=== PATIENT | female | born 1950 | race African-American/Black ===

== ENCOUNTER 2022-01-23 09:57 | Day surgery (SDC) | payer MEDICARE ==
[~2022-01-23] VITALS: Ht 152.4 cm; Wt 67.9 kg
[~2022-01-23 09:57] MED LIST: CENTRUM SILVER1 CTB PO; PREMARIN 0.60.625 M1 PO; PRINIVIL2.5 MG; VITAMIN D1000 IU PO
[2022-01-23] MEDS ORDERED: FOSAMAX 70MG TA70 MG PO (10:28)
[2022-01-23] MEDS ORDERED: LIPITOR 40MG TA40 MG PO (10:28)
[2022-01-23] MEDS ORDERED: CALCIUM 600600 MG PO (10:29)
[2022-01-23] MEDS ORDERED: OMEGA-3 1000 MG1 CAP PO (10:30)
[2022-01-23] MEDS ORDERED: PRINIVIL20 MG PO (10:30)
[2022-01-23] MEDS ORDERED: PATANOL OPHTHALM5 ML OU (10:31)
[2022-01-23] MEDS ORDERED: PRILOSEC 20MG20 MG PO (10:31)
[2022-01-23] MEDS ORDERED: PREDFORTE15ML OU (10:32)
[2022-01-23] MEDS ORDERED: VITAMIN C500 MG PO (10:33)
[2022-01-23] MEDS ORDERED: B-12 500 MCG PO (10:33)
[2022-01-23] MEDS ORDERED: VITAMINE200 (10:34)
[2022-01-23] MEDS ORDERED: VITAMIN D 400400 IU PO (10:34)
[2022-01-23 10:50] VITALS: BP 133/71; PULSE 65; TEMP 97.8
[2022-01-23 11:35] VITALS: BP 145/82; PULSE 88; TEMP 97.3
--- NOTE | 2022-01-23 11:35 | NUR ---
PT TO BAY 3 PER CART FROM ENDO ROOM. REPORT RECEIVED. VS OBTAINED. CALL LIGHT WITHIN REACH. PT DENIES ANY OTHER NEEDS AT THIS TIME.
[2022-01-23 11:50] VITALS: BP 146/91; PULSE 77
--- NOTE | 2022-01-23 11:50 | NUR ---
PT TOLERATING WATER WITHOUT DIFFICULTY.
--- NOTE | 2022-01-23 12:00 | NUR ---
PT TOLERATING MUFFIN. DR MARIA IN ROOM TO DISCUSS FINDINGS FROM THE PROCEDURE.
[2022-01-23 12:05] VITALS: BP 149/88; PULSE 72
--- NOTE | 2022-01-23 12:20 | NUR ---
1210-IV DC'D AT THIS TIME. 1215-DISCHARGE EDUCATION COMPLETED WITH PT. VERBALIZED UNDERSTANDING OF HOME AND FOLLOW UP CARE. ALL QUESTIONS ANSWERED. DISCHARGE PAPERWORK GIVEN TO PT. 1220-PT OFF UNIT PER WHEELCHAIR. PT DISCHARGED TO HOME WITH HER DAUGHTER PER PERSONAL VEHICLE.
== END 2022-01-23 12:20 | disposition home or self-care (01) ==
LOC: SDCO 09:57
DX: K29.81 Duodenitis with bleeding (principal); K29.70 Gastritis, unspecified, without bleeding; R10.13 Epigastric pain; E11.9 Type 2 diabetes mellitus without complications; Z80.0 Family history of malignant neoplasm of digestive organs; Z79.899 Other long term (current) drug therapy
CPT/HCPCS: J2704; J7120